=== PATIENT | female | born 1990 | race American Indian/Alaskan Native ===

== ENCOUNTER 2017-06-12 13:45 | Emergency (ER) | payer MEDICAID ==
[2017-06-12 14:04] VITALS: BP 103/62
[2017-06-12] MEDS ORDERED: ASPIRIN PO ONE (14:04)
[2017-06-12 14:43] LABS: Basophils # (Auto) 0.1 K/mm3 (0.0-0.1); Eosinophils # (Auto) 0.1 K/mm3 (0.0-0.4); Eosinophils % (Auto) 1.9 % (0.0-4.3); Hematocrit 40.3 % (30.3-42.9); Hemoglobin 13.7 gm/dl (10.1-14.3); Lymphocytes # (Auto) 2.7 K/mm3 (1.2-5.4); Lymphocytes % (Auto) 47.1 % (13.4-35.0); Mean Corpuscular HGB Conc 34 % (30-34); Mean Corpuscular Hemoglobin 30 pg (28-32); Mean Corpuscular Volume 87 fl (79-97); Monocytes # (Auto) 0.5 K/mm3 (0.0-0.8); Platelet Count 313 K/mm3 (140-440); Red Blood Count 4.61 M/mm3 (3.65-5.03); Red Cell Distribution Width 12.8 % (13.2-15.2)
[2017-06-12 14:58] LABS: BUN/Creatinine Ratio 18; Blood Urea Nitrogen 11 mg/dL (7-17); Calcium 9.1 mg/dL (8.4-10.2); Hemolysis Index 3
[2017-06-12 16:53] LABS: HCG Qualitative,Urine Positive (Negative)
[2017-06-12 16:55] LABS: Bacteria,Urine 1+ /HPF (Negative); Bilirubin,Urine NEG (Negative); Blood,Urine NEG (Negative); Color,Urine Yellow (Yellow); Mucus,Urine FEW /HPF; Protein,Urine <15 mg/dL mg/dL (Negative); WBC,Urine < 1.0 /HPF (0.0-6.0)
--- NOTE | 2017-06-13 01:36 | Emergency Department Report ---
HPI - General Chief Complaint: Chest Pain Time Seen by Provider: 06/13/17 01:20 - HPI HPI: Room 4 The patient is a 27-year-old female presenting with a chief complaint of chest pain and abdominal pain. The patient states for approximately 2.5 weeks she's had intermittent tightness in the left chest sometimes it worsens when she breathes. Patient states she may have had slight shortness of breath associated with it. She states she has also had bilateral lower quadrant abdominal pain the past 2.5 weeks has also been constant. Patient denies vaginal bleeding. Patient states her LMP was 05/11/2017. Patient found out she was today in the ED. There is been no history of vaginal bleeding , dysuria or fever. Patient admits to nausea but denies vomiting. The patient gives her chest pain a score of 4/10 and her abdominal pain and a score of 8-9/ 10 Location: [See above] Duration: 2.5 weeks Quality: Tightness/pain Severity: [See above] Modifying factors: [see above] Context: [see above] Mode of transportation: Unknown ED Past Medical Hx - Past Medical History Additional medical history: heart murmur - Surgical History Past Surgical History?: No - Family History Family history: other (PEs) - Social History Smoking Status: Never Smoker Substance Use Type: None (denies illicit drug use) - Medications Home Medications: Home Medications Medication Instructions Recorded Confirmed Last Taken Type Ondansetron [Zofran Odt] 4 mg PO Q4H #10 tab.rapdis 06/08/13 03/05/15 Unknown Rx Pnv,Calcium 72/Iron/Folic Acid 1 each PO DAILY #30 tablet 08/04/14 03/05/15 10:10 Rx [ Plus Tablet] Promethazine [Phenergan] 25 mg PO Q6H PRN #20 tablet 08/04/14 03/05/15 Unknown Rx Nitrofurantoin [place]/M-Cryst 100 mg PO Q12HR #14 capsule 09/30/14 03/05/15 Unknown Rx [Macrobid CAP] metroNIDAZOLE [Flagyl TAB] 500 mg PO Q12HR #14 tab 09/30/14 03/05/15 Unknown Rx Ferrous Sulfate 1 mg PO 4XD 01/29/15 03/05/15 1 Day Ago History ~12/09/15 tablet Cephalexin [Keflex] 500 mg PO Q6HR #28 capsule 01/30/15 03/05/15 Unknown Rx Nitrofurantoin Macrocrysta(Nf) 100 mg PO BID #14 capsule 01/30/15 03/05/15 Unknown Rx [Macrodantin CAP] Lidocain2.5%/Prilocai2.5% [Emla] 5 gm TP PRN #1 tube 03/05/15 Unknown Rx Vit Calc,Iron,Folic 1 each PO QDAY #90 tablet 06/13/17 Unknown Rx [ Vitamins] ED Review of Systems ROS: Stated complaint: HEADACHE/CHEST PAIN/ABD PAIN Other details as noted in HPI Constitutional: denies: fever Respiratory: shortness of breath (plus/minus) Cardiovascular: chest pain Gastrointestinal: abdominal pain, nausea. denies: vomiting Genitourinary: denies: abnormal menses Physical Exam - Physical Exam Vital Signs: Vital Signs 06/12/17 06/13/17 06/13/17 14:01 01:19 01:25 Temperature 97.5 F L Pulse Rate 81 83 Respiratory 18 16 18 Rate Blood Pressure 103/62 O2 Sat by Pulse 98 99 99 Oximetry Physical Exam: GENERAL: The patient is well-developed well-nourished female lying on stretcher not appearing to be in acute distress. [] HEENT: Normocephalic. Atraumatic. Extraocular motions are intact. Patient has moist mucous membranes. NECK: Supple. Trachea midline CHEST/LUNGS: Clear to auscultation. There is no respiratory distress noted. HEART/CARDIOVASCULAR: Regular. There is no tachycardia. There is no gallop rub or murmur. ABDOMEN: Abdomen is soft, with mild suprapubic discomfort to palpation. No rebound or guarding. Patient has normal bowel sounds. There is no abdominal distention. SKIN: There is no rash. There is no edema. There is no diaphoresis. NEURO: The patient is awake, alert, and oriented. The patient is cooperative. The patient has normal speech MUSCULOSKELETAL: There is no evidence of acute injury. ED Course Vital Signs 06/12/17 06/13/17 06/13/17 14:01 01:19 01:25 Temperature 97.5 F L Pulse Rate 81 83 Respiratory 18 16 18 Rate Blood Pressure 103/62 O2 Sat by Pulse 98 99 99 Oximetry - Reevaluation(s) Reevaluation #1: 06/13/17 01:37 Discussed with patient my desire to perform a CT scan of her chest to evaluate for PE given her symptoms of chest pain and pleurisy. I explained that she is at increased risk for development of the PE as a source of her chest pain given her state as well as family history of PEs. I explained that a d- dimer could not be is exclusively to rule out PE. The risk of increased morbidity and/or mortality from untreated PE was explained to the patient. The patient verbalizes understanding. I explained the risk of radiation from CT and /or V/Q scan as it relates to her new found . Patient verbalized understanding. Patient states she does not wish to receive any form of radiation at this time Reevaluation #2: 06/13/17 03:14 Ultrasound report reviewed with patient. Patient still does not wish to receive any form of radiation via VQ scan or CT. Patient given strong warnings to return should she change her mind. ED Medical Decision Making - Lab Data Result diagrams: 06/12/17 14:32 06/12/17 14:32 - EKG Data -: EKG Interpreted by Me EKG shows normal: sinus rhythm Rate: normal - EKG Data When compared to previous EKG there are: previous EKG unavailable Interpretation: other (PVC. No ischemic changes seen) - Radiology Data Radiology results: report reviewed (pelvic ultrasound), image reviewed (pelvic ultrasound) [facility] [address] [place] [address] Ultrasound Report Signed Patient: CHRISTOPHER PICHARDO MR#: [id number] : 1990 Acct:[id number] Age/Sex: 27 / F ADM Date: 06/12/17 Loc: ED Attending Dr: Ordering Physician: ABNER HERNÁNDEZ MD Date of Service: 06/13/17 Procedure(s): US OB transvaginal Accession Number(s): [id number] cc: ABNER HERNÁNDEZ MD FINAL REPORT EXAM: US OB TRANSVAGINAL HISTORY: lower abdominal pain, new TECHNIQUE: Transvaginal imaging was obtained the pelvis including Doppler interrogation of the uterus and adnexa. FINDINGS: The uterus is anteverted measuring 10.5 cm x 5.3 cm x 5.9 cm. Within the uterus is a well-formed gestational sac which contains a yolk sac and pole. The crown-rump length is 4.5 mm corresponding to a 6 week 1 day IUP. The heart rate is 99 BPM. Adjacent to the gestational sac is hypoechoic area measuring up to 9 mm in diameter compatible with a subchorionic bleed. There is minimal free fluid in cul-de-sac. The maternal left ovary is normal size contour and echotexture measuring 2.9 cm x 1.6 cm x 1.7 cm. The maternal right ovary measures 2.8 cm x 1.8 cm x 2.3 cm. Within the right ovary is 1.5 cm complex cyst compatible with corpus luteum cyst. IMPRESSION: Single viable IUP, 6 weeks 1 day. The heart rate is 99 BPM which is lower than expected. Small amount of free fluid in the cul-de-sac. Small subchorionic hemorrhage noted. 1.5 cm corpus luteum cyst in the right ovary. Transcribed By: RB Dictated By: MARY GALVEZ MD Electronically Authenticated By: MARY GALVEZ MD Signed Date/Time: 06/13/17243 DD/ 3 TD/TT: 06/13/17243 - Differential Diagnosis PE, atypical chest pain, ACS, GERD, pericarditis, ectopic , pregna Critical care attestation.: If time is entered above; I have spent that time in minutes in the direct care of this critically ill patient, excluding procedure time. ED Disposition Clinical Impression: , Chest pain Disposition: LEFT AGAINST MED ADVICE Is pt being admited?: No Does the pt Need Aspirin: No Condition: Undetermined Instructions: Chest Pain (ED), Pulmonary Embolism (GEN) Additional Instructions: Return to the emergency department immediately should you develop worsening symptoms, fever, inability to tolerate food or liquid or any other concerns. Prescriptions: Vit Calc,Iron,Folic [ Vitamins] 1 each PO QDAY #90 tablet Referrals: CAROL WOODS MD [Staff Physician] - [facility] (Dr. Woods is an [employer]. Please follow up with her to be established as a patient) Time of Disposition: 03:16 (patient leaving AMA)
--- NOTE | 2017-06-13 02:50 | Ultrasound Report ---
FINAL REPORT EXAM: US OB TRANSVAGINAL HISTORY: lower abdominal pain, new TECHNIQUE: Transvaginal imaging was obtained the pelvis including Doppler interrogation of the uterus and adnexa. FINDINGS: The uterus is anteverted measuring 10.5 cm x 5.3 cm x 5.9 cm. Within the uterus is a well-formed gestational sac which contains a yolk sac and pole. The crown-rump length is 4.5 mm corresponding to a 6 week 1 day IUP. The heart rate is 99 BPM. Adjacent to the gestational sac is hypoechoic area measuring up to 9 mm in diameter compatible with a subchorionic bleed. There is minimal free fluid in cul-de-sac. The maternal left ovary is normal size contour and echotexture measuring 2.9 cm x 1.6 cm x 1.7 cm. The maternal right ovary measures 2.8 cm x 1.8 cm x 2.3 cm. Within the right ovary is 1.5 cm complex cyst compatible with corpus luteum cyst. IMPRESSION: Single viable IUP, 6 weeks 1 day. The heart rate is 99 BPM which is lower than expected. Small amount of free fluid in the cul-de-sac. Small subchorionic hemorrhage noted. 1.5 cm corpus luteum cyst in the right ovary.
--- NOTE | 2017-06-13 02:51 | Ultrasound Report ---
FINAL REPORT EXAM: US OB < = 14 WEEKS FETUS HISTORY: lower abdominal pain, new TECHNIQUE: Routine transabdominal imaging was obtained the pelvis including Doppler interrogation of the uterus and adnexa. FINDINGS: The uterus is anteverted measuring 10.5 cm x 5.3 cm x 5.9 cm. Within the uterus is a well-formed gestational sac which contains a yolk sac and pole. The crown-rump length is 4.5 mm corresponding to a 6 week 1 day IUP. The heart rate is 99 BPM. There is minimal free fluid in cul-de-sac. Adjacent to the gestational sac is a hypoechoic area measuring 9 mm in maximum dimension compatible with subchorionic bleed. The maternal left ovary is normal size contour and echotexture measuring 2.8 cm x 1.6 cm x 1.7 cm. The maternal right ovary measures 2.8 cm x 1.8 cm x 2.3 cm. Within the right ovary is a complex cyst measuring 1.5 cm in diameter compatible with corpus luteum cyst. IMPRESSION: Single viable IUP, 6 week 1 day. The heart rate is 99 BPM which is lower than expected. Small subchorionic hemorrhage. Minimal free fluid in cul-de-sac.
== END 2017-06-13 03:29 | disposition left against medical advice (07) ==
LOC: ED 13:45
DX: O26.891 Other specified pregnancy related conditions, first trimester (principal); R07.9 Chest pain, unspecified; Z3A.01 Less than 8 weeks gestation of pregnancy
CPT/HCPCS: 36415; 76801; 76817; 80048; 81001; 81025; 84484; 84702; 85025; 93005; 93010; 99284

== ENCOUNTER 2017-11-05 08:50 | Outpatient (CLI) | payer MEDICAID ==
[2017-11-05 10:08] VITALS: BP 98/57
[2017-11-05 10:44] LABS: Bilirubin,Urine NEG (Negative); Blood,Urine NEG (Negative); Color,Urine Yellow (Yellow); Mucus,Urine FEW /HPF; Protein,Urine <15 mg/dL mg/dL (Negative); Urobilinogen,Urine < 2.0 mg/dL (<2.0)
[2017-11-05] MEDS ORDERED: LACTATED RINGERS 500 ML IV ONE (11:00)
[2017-11-05] MEDS ORDERED: TYLENOL PO ONE (11:53)
== END 2017-11-05 12:06 | disposition home or self-care (01) ==
LOC: TRG 08:50
PROVIDERS: ATTEND Obstetrics & Gynecology
DX: O47.02 False labor before 37 completed weeks of gestation, second trimester (principal); O13.3 Gestational [pregnancy-induced] hypertension without significant proteinuria, third trimester; Z3A.25 25 weeks gestation of pregnancy
CPT/HCPCS: 59025; 81001; 96360; J7120

== ENCOUNTER 2020-05-14 11:02 | Emergency (ER) | payer MEDICAID ==
[2020-05-14 11:22] VITALS: BP 111/55
--- NOTE | 2020-05-14 12:11 | Emergency Department Report ---
Minor Respiratory - HPI Chief Complaint: Chest Pain Stated Complaint: CHEST PAIN/SORE THROAT Duration: Today Pain Location: Throat Severity: mild Other History: 29-year-old -[place]aj[place] female presents to the emergency room for 1 day history of body aches, sore throat painful swallowing and a slight headache and fatigue. Patient states she took a Covid test today but will not be available for a few days. She denies any fever chills no nausea no vomiting no loss of taste or smell. Patient is currently on Depo. ED Review of Systems ROS: Stated complaint: CHEST PAIN/SORE THROAT Other details as noted in HPI Comment: All other systems reviewed and negative ED Past Medical Hx - Past Medical History Hx Hypertension: No Hx Congestive Heart Failure: No Hx Diabetes: No Hx Deep Vein Thrombosis: No Hx Renal Disease: No Hx Sickle Cell Disease: No Hx Seizures: No Hx Asthma: No Hx COPD: No Hx HIV: No Additional medical history: heart murmur - Social History Smoking Status: Never Smoker Substance Use Type: None - Medications Home Medications: Home Medications Medication Instructions Recorded Confirmed Last Taken Type Amoxicillin/K Clav Tab [Augmentin 1 tab PO Q12HR 7 Days #14 tab 05/14/20 Unknown Rx 875 mg] Ibuprofen [Motrin 800 MG tab] 800 mg PO Q8HR PRN #30 tablet 05/14/20 Unknown Rx Minor Respiratory Exam - Exam General: Vital signs noted. No distress. Alert and acting appropriately. HEENT: Yes Pharyngeal Erythema, Yes Pharyngeal Exudates, Yes Moist Mucous Membranes, No Rhinorrhea Ear: Neither TM Bulge, Neither TM Erythema, Neither EAC Pain, Neither EAC Discharge Neck: Yes Adenopathy, Yes Supple Lungs: Yes Good Air Exchange, No Wheezes, No Ronchi, No Stridor, No Cough, No Labored Respirations, No Retractions, No Use of Accessory Muscles, No Other Abnormal Lung Sounds Heart: Yes Regular, No Murmur Abdomen: Yes Normal Bowel Sounds, No Tenderness, No Peritoneal Signs Skin: No Rash, No Edema Neurologic: Alert and oriented, no deficits. Musculoskeletal: Unremarkable. ED Course Vital Signs 05/14/20 11:18 Temperature 98.4 F Pulse Rate 83 Respiratory 18 Rate Blood Pressure 111/55 O2 Sat by Pulse 97 Oximetry ED Medical Decision Making - Radiology Data Radiology results: report reviewed [facility] [address] [place] [address] XRay Report Signed Patient: CHRISTOPHER PICHARDO MR #: [id number] : 1990 Acct:[id number] Age/Sex: 29 / F ADM Date: 05/14/20 Loc: ED Attending Dr: Ordering Physician: SIVA SANCHEZ MD Date of Service: 05/14/20 Procedure(s): XR chest routine 2V Accession Number(s): [id number] cc: SIVA SANCHEZ MD Fluoro Time In Minutes: XR chest routine 2V INDICATION / CLINICAL INFORMATION: chest pain. COMPARISON: None available. FINDINGS: SUPPORT DEVICES: None. HEART /PULMONARY VASCULATURE: No significant abnormality. LUNGS / PLEURA: No significant pulmonary or pleural abnormality. No pneumothorax. ADDITIONAL FINDINGS: No significant additional findings. IMPRESSION: 1. No acute findings. Signer Name: Quita Albert MD Signed: 05/14/2020 12:21 PM Workstation Name: [id number] Transcribed By: JS Dictated By: QUITA ALBERT MD Electronically Authenticated By: QUITA ALBERT MD Signed Date/Time: 05/14/20 122 DD/ 122 TD/TT: - Medical Decision Making 29-year-old -[place] female presents to the emergency room for 1 day history of body aches, sore throat painful swallowing and a slight headache and fatigue. Patient states she took a Covid test today but will not be available for a few days. She denies any fever chills no nausea no vomiting no loss of taste or smell. Patient is currently on Depo. Chest x-ray is negative. Discussed with patient I will treat her for strep pharyngitis. Ibuprofen Tylenol as needed. Complete antibiotics as prescribed. Critical care attestation.: If time is entered above; I have spent that time in minutes in the direct care of this critically ill patient, excluding procedure time. ED Disposition Clinical Impression: Pharyngitis Disposition: DC-01 TO HOME OR SELFCARE Is pt being admited?: No Does the pt Need Aspirin: No Condition: Stable Instructions: Pharyngitis, [id number] Additional Instructions: Chest x-ray is negative for any acute abnormalities no pneumonia. Please complete your antibiotic for your sore throat and pain medication. Is very important that you increase your water intake and fluid intake while taking medications. Follow-up with your primary care provider if symptoms persist. Prescriptions: Amoxicillin/K Clav Tab [Augmentin 875 mg] 1 tab PO Q12HR 7 Days #14 tab Ibuprofen [Motrin 800 MG tab] 800 mg PO Q8HR PRN #30 tablet PRN Reason: Pain , Severe (7-10) Referrals: ANA CORONA MD [Staff Physician] - 3-5 Days LEO HAMMOND MD [Staff Physician] - 3-5 Days Forms: Work/School Release Form(ED)
--- NOTE | 2020-05-14 12:25 | XRay Report ---
XR chest routine 2V INDICATION / CLINICAL INFORMATION: chest pain. COMPARISON: None available. FINDINGS: SUPPORT DEVICES: None. HEART /PULMONARY VASCULATURE: No significant abnormality. LUNGS / PLEURA: No significant pulmonary or pleural abnormality. No pneumothorax. ADDITIONAL FINDINGS: No significant additional findings. IMPRESSION: 1. No acute findings. Signer Name: Dale Albert MD Signed: 05/14/2020 12:21 PM Workstation Name: [id number]
--- NOTE | 2020-05-15 09:52 | Electrocardiograph Report ---
[facility] Test Date: 2020-05-14 Test Time: 11:48:00 Pat Name: CHRISTOPHER PICHARDO Department: Room: Gender: F Billing Control Clerk: DANIEL NORIEGAB: 1990 Requested By: ED DOC Order Number: [id number] Reading MD: Franko Negron Measurements Intervals [place] Rate: 78 P: 51 TN: 180 QRS: 78 QRSD: 77 T: 45 QT: 346 QTc: 395 Interpretive Statements Sinus rhythm No previous ECG available for comparison Electronically Signed On 05-15-2020 6:52:34 PDT by Franko Negron
== END 2020-05-14 13:13 | disposition home or self-care (01) ==
LOC: ED 11:02
DX: J02.9 Acute pharyngitis, unspecified (principal); Z79.1 Long term (current) use of non-steroidal anti-inflammatories (NSAID); Z79.2 Long term (current) use of antibiotics; Z88.8 Allergy status to other drugs, medicaments and biological substances
CPT/HCPCS: 71046; 93005